=== PATIENT | male | born 1985 | race African-American/Black ===

== ENCOUNTER 2017-04-01 12:13 | Outpatient (RCR) | payer OTHER | END 2017-04-06 | LOC: M PT 12:13 | PROVIDERS: ATTEND Family Medicine | DX: Z51.81 Encounter for therapeutic drug level monitoring (principal); M25.561 Pain in right knee ==

== ENCOUNTER 2017-04-18 07:00 | Outpatient (RCR) | payer OTHER | END 2017-05-07 | LOC: M PT 07:00 | PROVIDERS: ATTEND Family Medicine | DX: Z51.89 Encounter for other specified aftercare (principal); M25.561 Pain in right knee ==